=== PATIENT | female | born 1960 | race Caucasian/White ===

== ENCOUNTER 2025-01-16 12:03 | Emergency (ER) | payer MEDICAID, OTHER ==
[~2025-01-16] VITALS: Ht 162.6 cm; Wt 68.0 kg
[2025-01-16 12:04] VITALS: O2SAT 97
[2025-01-16 12:59] LABS: BASOPHILS % 0.7 % (0.0-2.0); EOSINOPHILS % 2.1 % (0.0-5.0); HEMOGLOBIN. 14.2 g/dL (12.0-16.0); LYMPHOCYTES % 26.1 % (20.0-50.0); MEAN CORPUSCULAR HEMOGLOBIN 28.3 pg (28.0-32.0); MEAN CORPUSCULAR HGB CONC 33.1 g/dL (31.0-37.0); MEAN CORPUSCULAR VOLUME 85.6 fL (81.0-99.0); MEAN PLATELET VOLUME 8.2 fl (7.4-10.4); MONOCYTES % 5.5 % (2.0-8.0); NEUTROPHILS % 65.6 % (40.0-76.0); PLATELET 250 x1000/uL (130-400); RED BLOOD CELL COUNT 5.02 mill/uL (4.2-5.4); RED CELL DISTRIBUTION WIDTH 13.2 % (11.6-14.6); WHITE BLOOD COUNT 5.6 x1000/uL (4.5-11.0)
[2025-01-16 13:08] LABS: CHLORIDE 109 mEq/L (98-107); POTASSIUM 3.8 mEq/L (3.5-5.1); SODIUM 142 mEq/L (136-145)
[2025-01-16 13:09] LABS: CALCIUM 9.6 mg/dL (8.7-10.4); CARBON DIOXIDE 24 mEq/L (21-32)
[2025-01-16 13:14] LABS: CREATININE 0.6 mg/dL (0.6-1.0); GLUCOSE 116 mg/dL (70-105); UREA NITROGEN BLOOD 11 mg/dL (9-23)
[2025-01-16 14:11] LABS: TROPONIN I HIGH SENSITIVITY < 4 ng/L (3.0-34)
[2025-01-16] MEDS: KETOROLAC 30MG/ML VIAL IM ONE (14:13)
[2025-01-16] MEDS: MECLIZINE 25MG TABLET PO ONE (14:14)
[2025-01-16 14:41] LABS: PROTHROMBIN TIME 10.4 sec (9.6-11.0)
[2025-01-16] MEDS ORDERED: MECL-299 MT (14:42)
[2025-01-16 15:15] VITALS: BP 136/81; PULSE 76; RESP 16; TEMP 36.7; O2SAT 98
== END 2025-01-16 15:37 | disposition home or self-care (01) ==
LOC: ER 12:03
DX: H81.10 Benign paroxysmal vertigo, unspecified ear (principal); E11.9 Type 2 diabetes mellitus without complications; R51.9 Headache, unspecified; Z79.899 Other long term (current) drug therapy
CPT/HCPCS: 99285; 70450; 71045; 80048; 83880; 85025; 85610; 84484; 36415; 93005; 96372; J1885; J8597